=== PATIENT | male | born 1990 | race Hispanic/Latino ===

== ENCOUNTER 2018-10-08 04:06 | Emergency (ER) | payer OTHER ==
[2018-10-08] MEDS ORDERED: ACETAMINOPHEN EXTRA STRENGTH 500 MG TABLET ONE (04:48)
[2018-10-08] MEDS ORDERED: KETOROLAC TROMETHAMINE 60 MG/2 ML VIAL ONE (04:48)
== END 2018-10-08 05:21 | disposition home or self-care (01) ==
LOC: EDH 04:06
DX: S80.02XA Contusion of left knee, initial encounter (principal); Z72.0 Tobacco use; V98.8XXA Other specified transport accidents, initial encounter; Y93.89 Activity, other specified; Y92.89 Other specified places as the place of occurrence of the external cause; Y99.8 Other external cause status
CPT/HCPCS: 73562; 96372; 99283; J1885

== ENCOUNTER 2025-08-05 10:23 | Emergency (ER) | payer SELFPAY ==
[~2025-08-05] VITALS: Ht 180.3 cm; Wt 122.5 kg
--- NOTE | 2025-08-05 10:31 | ERN ---
ED Note History of Present Illness Stated Complaint: COUGH/ CHEST AND BACK PAIN Chief Complaint: Cough Time Seen by MD: 10:25 Dictation: PATIENT IS A 35-YEAR-OLD MALE STATES HE IS HERE WITH A COUGH THAT HAS BEEN NONPRODUCTIVE FOR SEVERAL DAYS. HE STATES LAST WEEK HE HAD BEEN AT [facility] WAS DIAGNOSED WITH PNEUMONIA FOR THE SAME COMPLAINT, WAS PRESCRIBED AMOXICILLIN/VAN A COUGH AND MOTRIN. STATES HE WAS ALSO TOLD THERE WAS FLUID IN HIS LUNGS. HE STATES HE DOES NOT HAVE A PRIMARY CARE DOCTOR. STATES HE CAME IN TODAY BECAUSE HE IS NOT FEELING ANY BETTER. CURRENTLY THERE WAS NO COUGH IN TRIAGE HE IS AFEBRILE AND THERE WAS NO TACHYCARDIA. Allergies: Coded Allergies: No Known Drug Allergies (Unverified Allergy, Unknown, 08/05/25) Past Medical History RN Note Reviewed/Agreed w/PFSH: Yes Review of System Dictation CONSTITUTIONAL: NEGATIVE EXCEPT FOR HPI HEAD/FACE: NEGATIVE EXCEPT FOR HPI EENT: NEGATIVE EXCEPT FOR HPI RESPIRATORY: NEGATIVE EXCEPT FOR HPI COUGH GASTROINTESTINAL/ABDOMINAL: NEGATIVE EXCEPT FOR HPI GENITOURINARY: NEGATIVE EXCEPT FOR HPI MUSCULOSKELETAL: NEGATIVE EXCEPT FOR HPI INTEGUMENTARY: NEGATIVE EXCEPT FOR HPI NEUROLOGICAL/PSYCH: NEGATIVE EXCEPT FOR HPI HEMATOLOGIC/LYMPHATIC: NEGATIVE EXCEPT FOR HPI ALL SYSTEMS NEGATIVE, EXCEPT NOTED ABOVE. 13 POINT REVIEW OF SYSTEMS ASSESSED AND ALL NEGATIVE EXCEPT FOR ABOVE. Initial Vital Sign VS Vital Signs Date Time Temp Pulse Resp B/P (MAP) Pulse Ox O2 Delivery O2 Flow Rate FiO2 08/05/25 10:25 98.4 86 18 163/102 99 Room Air 0 Physical Exam Dictation VITAL SIGNS REVIEWED GENERAL APPEARANCE: ALERT, ORIENTED X 3, NO ACUTE DISTRESS, WELL DEVELOPED, NOURISHED. OBESE NO PAIN AT THIS TIME. HEAD AND FACE: NON-TRAUMATIC. EYES: PERRL, PINK CONJUNCTIVAS, EYELID NO TRAUMA, ANTERIOR CHAMBER WITH ARCUS SENILIS. EARS: PINNAS INTACT AND NO SIGNS OF TRAUMA OR ERYTHEMA EAR CANALS CLEAR AND NO DISCHARGE TM NO ERYTHEMA NOSE: NO DISCHARGE, NO BLEEDING. OROPHARYNX: MOUTH NORMAL, TONGUE PINK, PHARYNX CLEAR,NO ERYTHEMA, TONSILS NO EXUDATES, NO ABSCESSES NOTED, MUCOUS MEMBRANE MOIST NECK: SUPPLE, NON-TENDER, NO THYROMEGALY, NO MASSES, NO JVD, NO BRUITS BREAST:DEFERRED CHEST:NO TENDERNESS, NO CREPITUS, NO PARADOXICAL MOVEMENT, NO RETRACTIONS LUNGS:CLEAR, WELL-VENTILATED, SYMMETRIC, NO RALES, NO WHEEZING, NO RHONCHI, NO STRIDOR, GOOD BREATH SOUNDS BILATERALLY NO TACHYPNEA NO RETRACTIONS HEART: REGULAR RATE, REGULAR RHYTHM, NO MURMUR, NO GALLOPS VASCULAR: NO PERIPHERAL EDEMA, ABDOMEN: SOFT, POSITIVE BOWEL SOUNDS, NONDISTENDED, NO GUARDING, NONTENDER, NO REBOUND, NO MASSES NO HEPATOMEGALY, NO SPLENOMEGALY, NO LIN'S SIGN, NO HERNIAS. RECTAL: DEFERRED GENITAL: DEFERRED NEUROLOGICAL: NORMAL SPEECH, MOTOR FUNCTION INTACT, SENSORY FUNCTION INTACT MUSCULOSKELETAL: NECK NONTENDER, FULL RANGE OF MOTION, BACK NONTENDER, FULL RANGE OF MOTION, EXTREMITIES: NONTENDER, FULL RANGE OF MOTION SKIN: COLOR PINK, DRY, NO TURGOR, NO RASH, NO LACERATIONS, NO ABRASIONS, NO CONTUSIONS. LYMPHATIC: DEFERRED Results (Laboratory/Radiology) Laboratory/Radiology Laboratory Tests Test 08/05/25 10:45 White Blood Count 10.4 K/uL (4.8-10.8) Red Blood Count 5.38 MIL/uL (4.50-6.20) Hemoglobin 16.3 g/dL (14.0-18.0) Hematocrit 48.2 % (42-54) Mean Corpuscular Volume 89.6 fL (79-99) Mean Corpuscular Hemoglobin 30.3 pg (27.0-33.0) Mean Corpuscular Hemoglobin Concent 33.8 g/dL (32.0-36.0) Red Cell Distribution Width 12.5 % (11.0-15.5) Platelet Count 323 K/uL (130-400) Mean Platelet Volume 8.7 fL (7.5-10.5) Immature Granulocyte % (Auto) 0.4 % (0-1) Neutrophils (%) (Auto) 62.4 % (40.0-77.0) Lymphocytes (%) (Auto) 24.3 % (21.0-51.0) Monocytes (%) (Auto) 8.9 % (3.0-13.0) Eosinophils (%) (Auto) 3.2 % (0.0-8.0) Basophils (%) (Auto) 0.8 % (0.0-5.0) Neutrophils # (Auto) 6.5 K/uL (1.8-7.7) Lymphocytes # (Auto) 2.5 K/uL (1.0-4.8) Monocytes # (Auto) 0.9 K/uL (0.1-1.0) Eosinophils # (Auto) 0.33 K/uL (0.00-0.70) Basophils # (Auto) 0.08 K/uL (0.00-0.20) Absolute Immature Granulocyte (auto 0.04 K/uL (0-1) Nucleated Red Blood Cells 0.0 % (0.0-0.19) Sodium Level 139 mmol/L (136-145) Potassium Level 3.9 mmol/L (3.5-5.1) Chloride Level 103 mmol/L (101-111) Carbon Dioxide Level 29 mmol/L (21-32) Blood Urea Nitrogen 8 mg/dL (7-18) Creatinine 0.8 mg/dL (0.5-1.3) Glomerular Filtration Rate Calc 117 mL/min (>90) Random Glucose 103 mg/dL (70-105) Total Calcium 8.6 mg/dL (8.5-10.1) 1045/CHEST X-RAY NEGATIVE EXAM: CR Chest, PA View. CLINICAL HISTORY: COUGH COMPARISON: None provided. FINDINGS: LUNGS: Bronchovascular markings appear prominent. There is no mass, infiltrate, or acute pulmonary abnormality. PLEURAL SPACES: No pleural effusion or pneumothorax. MEDIASTINUM: Cardiac size and mediastinal contours are within normal limits. BONES: No aggressive appearing osseous lesion seen. IMPRESSION: Bronchovascular markings appear prominent. No acute cardiopulmonary pathology is evident. /[facility] Reviewed?: Yes ED Course ED Course Orders Procedure Category Date Status Time Cbc With Differential LAB 08/05/25 Complete 10: Chest 1vw RAD 08/05/25 Resulted 10: Basic Metabolic Panel LAB 08/05/25 Complete 10: Vital Signs Date Time Temp Pulse Resp B/P (MAP) Pulse Ox O2 Delivery O2 Flow Rate FiO2 08/05/25 10: 98.4 86 18 163/102 99 Room Air 0 1115/MEDICAL DISCHARGE MAKING BASED ON BASIC LABS AND CHEST X-RAY. LABS ARE COMPLETELY UNREMARKABLE CHEST X-RAY SHOWS PROMINENT BRONCHIAL MARKINGS PATIENT WILL BE TREATED FOR COUGH AND REFERRED TO A PRIMARY CARE DOCTOR Medical Decision Making MDM MEDICAL DECISION-MAKING BASED ON HPI, PHYSICAL ASSESSMENT AND BASIC LABS WITH THE CHEST X-RAY. LABS ARE COMPLETELY UNREMARKABLE CHEST X-RAY CLEAR PATIENT WILL BE DISCHARGED HOME WITH TESSALON, ALBUTEROL, PREDNISONE PATIENT GIVEN A LIST OF LOCAL DOCTORS ON STAFF TO FOLLOW UP WITH THE NEXT SEVERAL DAYS IF NEEDED. DX & DISP Disposition: Discharge Departure Impression: Primary Impression: Cough Condition: Stable Scripts Benzonatate (Tessalon Perles) 100 Mg Cap 200 MG PO TID for cough, #60 CAP 0 Refills Prov: ANDREW LOPEZ 08/05/25 Prednisone (Prednisone) 20 Mg Tablet 1 TAB PO AD for 6 Days, #14 TAB 0 Refills TAKE 1 TAB BY MOUTH THREE TIMES PER DAY X3 DAYS, THEN TAKE 1 TAB BY MOUTH TWICE A DAY X2 DAYS, THEN TAKE 1 TAB BY MOUTH ONCE A DAY X1 DAY. Prov: ANDREW LOPEZ 08/05/25 Albuterol Sulfate (Ventolin Hfa/Proventil Hfa/Proair Hfa) 90 Mcg Puff 2 PUFF IH Q4H for WHEEZING, #1 INHALER 0 Refills Prov: ANDREW LOPEZ 08/05/25 Additional Instructions: FOLLOW-UP WITH PRIMARY CARE PROVIDER IN 1 TO 2 DAYS. TAKE MEDICATIONS DIRECTED HERE IN THE EMERGENCY ROOM. OKAY TO CONTINUE HOME MEDICATIONS UNLESS OTHERWISE DISCUSSED DURING YOUR VISIT IN THE EMERGENCY ROOM TODAY. RETURN TO YOUR NEAREST EMERGENCY ROOM IF SYMPTOMS WORSEN OR IF THERE IS NO IMPROVEMENT. CALL 911 IF YOU NEED IMMEDIATE ASSISTANCE. TAKE TYLENOL OR MOTRIN [id number] NEEDED AND IF NO CONTRAINDICATIONS ARE PRESENT. INCREASE ORAL HYDRATION. A WOUND CULTURE OR URINE CULTURE WAS ORDERED HERE IN THE EMERGENCY ROOM DEPARTMENT PLEASE FOLLOW-UP WITH PRIMARY CARE PROVIDER AND ADVISE THEM TO GET REPEAT PORTS FROM OUR FACILITY. IF YOU HAD ANY YVETTE WRAP/SPLINTS THAT WERE APPLIED HERE, PLEASE DO NOT REMOVE THEM UNTIL YOU SEE YOUR PRIMARY CARE OR SPECIALTY. USE ALBUTEROL INHALER EVERY 4 HOURS WHILE AWAKE FOR THE NEXT TWO DAYS. TAKE PREDNISONE WITH FOOD DIRECTED UNTIL GONE. TAKE TESSALON NEEDED FOR COUGH INCREASE YOUR WATER INTAKE AND FOLLOW UP WITH ONE OF THE PRIMARY CARE DOCTORS ON THE LIST GIVEN YOU IN THE NEXT 2-3 DAYS IF NO IMPROVEMENT Referrals: SELF,REFERRAL (PCP) Time of Disposition: 11:16 I have reviewed the case, and I agree with, Diagnosis and Plan ANDREW LOPEZ Aug 05, 2025 10:31
[2025-08-05 10:51] LABS: IMMATURE GRANULOCYTE ABSOLUTE 0.04 K/uL (0-1); NUCLEATED RED BLOOD CELLS 0.0 % (0.0-0.19); PLATELET COUNT (AUTO) 323 K/uL (130-400); RED BLOOD CELL COUNT(AUTO) 5.38 MIL/uL (4.50-6.20); RED CELL DISTRIBUTION WIDTH 12.5 % (11.0-15.5); WHITE BLOOD COUNT (AUTO) 10.4 K/uL (4.8-10.8)
[2025-08-05 10:58] LABS: CREATININE 0.8 mg/dL (0.5-1.3); GLOMERULAR FILTR. RATE CALC 117.0 mL/min (>90); GLUCOSE,RANDOM 103.0 mg/dL (70-105); SODIUM SERUM 139.0 mmol/L (136-145); UREA NITROGEN, BLOOD 8.0 mg/dL (7-18)
--- NOTE | 2025-08-05 11:07 | HMCIMG ---
EXAM: CR Chest, PA View. CLINICAL HISTORY: COUGH COMPARISON: None provided. FINDINGS: LUNGS: Bronchovascular markings appear prominent. There is no mass, infiltrate, or acute pulmonary abnormality. PLEURAL SPACES: No pleural effusion or pneumothorax. MEDIASTINUM: Cardiac size and mediastinal contours are within normal limits. BONES: No aggressive appearing osseous lesion seen. IMPRESSION: Bronchovascular markings appear prominent. No acute cardiopulmonary pathology is evident. /[place]
[2025-08-05] MEDS ORDERED: PRED20TA3 PO (11:17)
[2025-08-05] MEDS ORDERED: ALBUHFA IH (11:17)
[2025-08-05] MEDS ORDERED: BENZ-39 PO (11:17)
[2025-08-05 11:27] VITALS: BP 147/89; PULSE 85; RESP 18; TEMP 98.6; O2SAT 99
== END 2025-08-05 11:27 | disposition home or self-care (01) ==
LOC: EDH 10:23
DX: R05.9 Cough, unspecified (principal)
CPT/HCPCS: 36415; 71045; 80048; 85025; 99284